=== PATIENT | female | born 1965 ===

== ENCOUNTER 2019-09-12 16:54 | Observation (INO) | payer BC, SELFPAY ==
--- NOTE | ~2019-09-12 | XR_ITS ---
EXAMINATION: XR chest 2V EXAM DATE: 09/12/2019 17:58 INDICATION: Chest pain, heaviness. TECHNIQUE: Frontal and lateral projections of the chest obtained and reviewed. There is no prior virgilio dy for comparison. FINDINGS: The lungs are clear. There are no pleural effusions. The cardiomediastinal silhouette is within normal limits. There is no pneumothorax suspected. The bones and soft tissues are unremarkab le. IMPRESSION: Normal chest x-ray exam. Reviewed, dictated and finalized at location A. OL FUNDRAISING DIRECTOR IMPRESSION: Normal chest x-ray exam.
--- NOTE | ~2019-09-12 | CT_ITS ---
EXAMINATION: CTA chest PE protocol EXAM DATE: 09/12/2019 18:46 INDICATION: Chest pain, dyspnea. TECHNIQUE: Spiral CTA of the chest (pulmonary arteries) was performed with 100 cc Omnipaque 350 intr avenous contrast injection. Images were acquired during the pulmonary arterial phase. Coronal maxi mum intensity projection 3D-reconstructions were created by the technologist on dedicated workstation . Axial, coronal and sagittal reformatted images were reviewed. The dose-length product (DLP) for t his examination was 592.53 mGy-cm. The exposure was tailored according to patient size (auto mA exp osure control), and iterative reconstruction (ASIR) was used as additional dose reduction technique. There is no prior study for comparison. FINDINGS: Pulmonary arteries are well opacified and without intraluminal filling defects. There is a n aberrant right subclavian artery, a normal congenital variant. No thoracic aortic dissection. The lungs are clear. There are no pleural or pericardial effusions. Tracheobronchial tree is patent. There is no mediastinal, hilar or axillary lymphadenopathy. There is no pneumothorax. Heart no rmal in size. There is mild coronary arterial calcification, arterial sclerosis. Cholecystectomy. There is a duodenal diverticulum measuring 2 x 4 cm. There are 2 right adrenal gland lesions measurin g about 1 cm, most likely adenomas. There is mild to moderate thoracic spondylosis without osteoblast ic or osteolytic lesions identified. IMPRESSION: 1. No pulmonary emboli or acute cardiopulmonary findings. Reviewed, dictated and finalized at location A. STRIAL EDITOR
--- NOTE | 2019-09-12 17:26 | ECG_ITS ---
Measurements Intervals [place] Rate: 59 P: 104 [place]: 137 QRS: -24 QRSD: 107 T: 46 QT: 408 QTc: 407 Interpretive Statements SINUS BRADYCARDIA NONSPECIFIC T-WAVE ABNORMALITY- INF/LAT LEADS BORDERLINE ECG Electronically Signed On 09-13-2019 6:42:59 WAREHOUSE OPERATIONS ASSOCIATE by Sid Han D.O.
[2019-09-12] MEDS: ASPIRIN 81 MG CHEWABLE TABLET 324 MG PO (17:32)
[2019-09-12 17:43] VITALS: BP 122/70; PULSE 72; RESP 18; TEMP 37.1; O2SAT 100
[2019-09-12 17:44] LABS: Basophils Percent Auto 0.3 % (0.2-1.2); Eosinophils Absolute Auto 0.1 K/mm3 (0-0.3); Eosinophils Percent Auto 0.6 % (0-4.4); Hematocrit 52.9 % (37.0-47.0); Hemoglobin 17.5 g/dL (12.0-15.0); Immature Granulocyte Absolute 0.03 K/mm3 (0.00-0.031); Immature Granulocyte Percent A 0.3 % (0-0.5); Lymphocytes Absolute Auto 2.02 K/mm3 (0.9-3.2); Lymphocytes Percent Auto 21.5 % (18.3-44.2); Mean Corpuscular HGB Conc 33.1 g/dl (32-36); Mean Corpuscular Hemoglobin 30.5 pg (26-34); Mean Corpuscular Volume 92.3 fl (80-100); Mean Platelet Volume 9.8 fl (7.4-10.4); Monocytes Absolute Auto 0.6 K/mm3 (0.1-0.6); Monocytes Percent Auto 6.2 % (2.6-8.5); Neutrophils Absolute Auto 6.7 K/mm3 (1.3-6.7); Neutrophils Percent Auto 71.1 % (45.5-73.1); Platelet Count Result 248 k/mm3 (150-375); Red Blood Count 5.73 M/mm3 (4.2-5.4); Red Cell Distribution Width 13.2 % (11.5-14.5); White Blood Count 9.4 K/mm3 (4.5-10.0)
--- NOTE | 2019-09-12 17:47 | ED.CHESTPAIN ---
HPI - Chest Pain General Chief Complaint: Chest Pain <Cris Asher MD - Last Filed: 09/12/19 18:26> Stated Complaint: CHEST HEAVINESS <Cris Asher MD - Last Filed: 09/12/19 18:26> Time Seen by Provider: 09/12/19 17:12 <Cris Asher MD - Last Filed: 09/12/19 18:26> Source: patient <Cris Asher MD - Last Filed: 09/12/19 18:26> Mode of arrival: EMS <Cris Asher MD - Last Filed: 09/12/19 18:26> Limitations: no limitations <Cris Asher MD - Last Filed: 09/12/19 18:26> History of Present Illness HPI narrative: Patient is a 54-year-old female who presents to the emergency department with complaint of chest heaviness and fatigue. Patient states she had onset of symptoms this morning after getting to work. She states the symptoms have progressively worsened throughout the day. She complains of feelings of fatigue and exhaustion. She states she has felt hot, flushed, and dizzy. She reports having difficulty taking a deep breath and feeling like something is sitting on her chest . She denies any fever, nausea, vomiting, or cough. She does report some diarrhea today. Patient was seen at urgent care 3 days ago for toothache and placed on antibiotics. Patient return to urgent care today and was sent to the emergency department for further evaluation of her symptoms. <Cris Asher MD - Last Filed: 09/12/19 18:26> MD complaint: chest heaviness <Cris Asher MD - Last Filed: 09/12/19 18:26> Onset (ago): hour(s) <Cris Asher MD - Last Filed: 09/12/19 18:26> Timing of current episode: constant, increasing and still present <Cris Asher MD - Last Filed: 09/12/19 18:26> Pain location: substernal <Cris Asher MD - Last Filed: 09/12/19 18:26> Pain radiation: none <Cris Asher MD - Last Filed: 09/12/19 18:26> Quality: heaviness <Cris Asher MD - Last Filed: 09/12/19 18:26> Associated symptoms: dyspnea <Cris Asher MD - Last Filed: 09/12/19 18:26> Related Data Home Medications: Home Medications Medication Instructions Recorded Confirmed penicillin V potassium 500 mg TID 09/12/19 09/12/19 <Cris Asher MD - Last Filed: 09/12/19 18:26> Allergies/Adverse Reactions: Allergies Allergy/AdvReac Type Severity Reaction Status Date / Time latex Allergy Mild Unknown Verified 09/12/19 18:26 <Cris Asher MD - Last Filed: 09/12/19 18:26> Review of Systems Constitutional: Constitutional: Reports fatigue and Denies fever(s) <Cris Asher MD - Last Filed: 09/12/19 18:26> ENT: Denies sore throat <Cris Asher MD - Last Filed: 09/12/19 18:26> Cardiovascular: Cardiovascular: Reports chest pain <Cris Asher MD - Last Filed: 09/12/19 18:26> Respiratory: Respiratory: Denies cough and Reports dyspnea <Cris Asher MD - Last Filed: 09/12/19 18:26> Gastrointestinal: Gastrointestinal: Denies abdominal pain, Reports diarrhea, Reports nausea and Denies vomiting <Cris Asher MD - Last Filed: 09/12/19 18:26> FOR[facility]LY [facility], [facility] Past Medical History Medical History: Medical History Family history of coronary artery disease Hypertension <Cris Asher MD - Last Filed: 09/12/19 18:26> Surgical History Surgical History: Surgical History History of appendectomy History of cholecystectomy <Cris Asher MD - Last Filed: 09/12/19 18:26> Family History Family History: Family History Father Diabetes mellitus Heart attack Sibling Diabetes mellitus Mother Cancer Sibling Cancer Heart attack <Cris Asher MD - Last Filed: 09/12/19 18:26> Social History Social History: Social
[2019-09-12 17:55] LABS: Alanine Aminotransferase 54 U/L (4-35); Albumin Level 4.9 g/dL (3.5-5.1); Alkaline Phosphatase 86 U/L (38-126); Aspartate Amino Transferase 42 U/L (14-36); Bilirubin,Total 0.6 mg/dL (0.2-1.3); Blood Urea Nitrogen 24 mg/dL (7-17); Calcium 9.9 mg/dL (8.4-10.2); Carbon Dioxide 22 mmol/L (22-30); Chloride 96 mmol/L (98-107); Estimated CRCL calculation 37 ml/min; Estimated Glomerular Filt Rate 33; Glucose 97 mg/dL (65-105); Potassium 4.2 mmol/L (3.4-5.0); Sodium 137 mmol/L (137-145)
[2019-09-12 17:56] LABS: Prothrombin Time 12.9 Seconds (11.1-14.7)
[2019-09-12 17:57] LABS: Partial Thromboplastin Time 28.1 SECONDS (22.3-36.8)
[2019-09-12 18:07] LABS: Troponin I < 0.012 ng/mL (0.000-0.034)
[2019-09-12 18:23] VITALS: BP 112/74; PULSE 61; RESP 14; O2SAT 99
[2019-09-12 19:02] LABS: Add Urine Microscopic? YES; Appearance Urine Cloudy (Clear); Bilirubin Urine Negative (Negative); Blood Urine Negative (Negative); Color Urine Yellow (Yellow); Glucose Urine UA Negative (Negative); Ketones Urine 1+ mg/dL (Negative); Leukocyte Esterase Ur Negative LEU/UL (Negative); Mucus Urine Rare /lpf; Nitrate Urine Negative (Negative); Protein Urine 1+ mg/dL (Negative); Specific Grav Ur 1.021 (1.001-1.035); Squamous Epithelial Cell Urine Occasional /hpf (Few); Urobilinogen Urine Negative mg/dL (<2.0)
[2019-09-12] MEDS: LACTATED RINGERS 1,000 ML 999 ML IV CONT ×2 (19:14→20:14)
[2019-09-12 20:12] VITALS: BP 110/66; PULSE 53; RESP 14; O2SAT 100
[2019-09-12 20:57] LABS: Troponin I < 0.012 ng/mL (0.000-0.034)
[2019-09-12 21:47] VITALS: BP 112/70; PULSE 58; RESP 16; O2SAT 98
[2019-09-12 22:00] VITALS: PULSE 60
[2019-09-12 22:10] VITALS: BMI 30.4
[2019-09-12 22:15] VITALS: BP 127/84; PULSE 66; RESP 18; TEMP 36.2; O2SAT 99; BMI 30.4
[2019-09-12] MEDS: LACTATED RINGERS 1,000 ML 125 ML IV CONT (22:50)
--- NOTE | 2019-09-12 23:46 | PM.IMHP ---
H&P: HPI History of Present Illness Chief complaint: chest pressure renal failure Narrative: This is a 54 year old female who presented to the hospital today secondary to feeling flushed, chest heaviness, and diarrhea today. The patient just started taking penicillin for a tooth abscess and today when she went to work she started to feel bad. She describes feeling flushed, hot, and clammy about 2 hours after taking her penicillin. She decided to go outside to get some fresh air and while she was outside in her car she began to have diarrhea. She ended up going to her mother's house to take a shower and then came back to work. She noticed that she was experiencing midsternal chest pressure that wasn't radiating anywhere. Her chest pressure was worse with exertion. She continued to have intermittent chest heaviness throughout the afternoon and decided to come to the hospital for evaluation. She has no previous history of heart disease and has never had a stress test before. The patient was found to have mild acute kidney injury in the ER tonight. Cardiology was consulted by the ER provider. On further questioning the patient denies any LE swelling, redness or pain. She denies any shortness of breath, headache, fevers, chills, coughing, sore throat, abdominal pain, dysuria, hematuria or rectal bleeding. On my encounter with her she is only complaining of tooth pain. Review of Systems Review of Systems: All systems reviewed & are unremarkable except as noted in HPI and below PMFSH Past Medical History Medical History Family history of coronary artery disease Hypertension Surgical History Surgical History History of appendectomy History of cholecystectomy Family History Family History Father Diabetes mellitus Heart attack Sibling Diabetes mellitus Mother Cancer Sibling Cancer Heart attack Social History Social History Smoking status: Never smoker Additional smoking assessment comments: occasional, social Alcohol intake: never Alcohol use details: occasional, social Substance use: never Gender identity (if verbalized by the patient): Male Spiritual care concerns: No Agree to blood products: Yes Meds Home Medications and Allergies Home Medications Medication Instructions Recorded Confirmed Type lisinopril 10 1 tablet PO DAILY #90 tablet 06/22/19 09/12/19 Rx mg-hydrochlorothiazide 12.5 mg tablet penicillin V potassium 500 mg TID 09/12/19 09/12/19 History Allergies Allergy/AdvReac Type Severity Reaction Status Date / Time latex Allergy Mild Unknown Verified 09/12/19 18:26 Vital Signs Vital Signs - 24 hr 09/12/19 17:43 09/12/19 18:23 09/12/19 20:12 Temperature 37.1 C Pulse Rate 72 61 53 L Respiratory Rate 18 14 14 Blood Pressure 122/70 112/74 110/66 Pulse Oximetry 100 99 100 09/12/19 21:47 09/12/19 22:15 Temperature 36.2 C L Pulse Rate 58 L 66 Respiratory Rate 16 18 Blood Pressure 112/70 127/84 Pulse Oximetry 98 99 Exam Const: General: cooperative, healthy appearing, no acute distress, alert and awake Nutritional Appearance: well nourished Orientation/consciousness: patient oriented x3 HENMT: Head: normal to inspection General nose exam: Normal external nose present Face and sinus: normal facial exam Mouth: Yes Normal oral and palatal mucosa present and Yes oropharynx normal Teeth and gingiva: other (broken right post. molar tooth w/ cavity+++ ) Eyes: Pupils: Equal, round and reactive pupils present EOM: EOMs intact bilaterally Neck: Neck: supple and no JVD Thyroid: thyroid normal Lymphatic: lymphadenopathy not noted Resp: Effort & Inspection: normal respiratory effort Auscultation: clear to auscultation bilaterally Cardio
[2019-09-13] VITALS (9 sets, daily range): BP systolic 98–122; BP diastolic 53–69; PULSE 47–98; RESP 20–21; TEMP 35.9–36.2; O2SAT 54–98
[2019-09-13 00:55] LABS: Troponin I < 0.012 ng/mL (0.000-0.034)
[2019-09-13] MEDS: AMOXICILLIN/CLAVULANATE K 500-125 MG TAB 1 TABLET PO ×2 (01:31→06:55)
[2019-09-13 05:55] LABS: Blood Urea Nitrogen 17 mg/dL (7-17); Carbon Dioxide 24 mmol/L (22-30); Chloride 100 mmol/L (98-107); Estimated CRCL calculation 71 ml/min; Estimated Glomerular Filt Rate > 60; Glucose 84 mg/dL (65-105); Potassium 3.8 mmol/L (3.4-5.0); Sodium 138 mmol/L (137-145)
[2019-09-13] MEDS: LACTATED RINGERS 1,000 ML 125 ML IV CONT (06:59)
--- NOTE | 2019-09-13 09:53 | PM.CNCAR ---
Assessment and Plan Assessment and plan (1) Chest pain: Code(s): R07.9 - Chest pain, unspecified Status: Acute Assessment and Plan: Atypical for angina. Chest pain has resolved and happened in the setting of possible reaction to abx EKG with no ischemic changes. trop is negative X3 Will hold off any further cardiac work up at this point She is stable for discharge from cardiac standpoint Given age, h/o HTN will plan stress echo for risk stratification. That to be arranged in outpatient settings after dental abscess resolved. (2) Acute renal failure: Code(s): N17.9 - Acute kidney failure, unspecified Status: Acute Assessment and Plan: Pre renal, better with IV fluids. (3) HTN (hypertension) with goal to be determined: Code(s): I10 - Essential (primary) hypertension Status: Acute Assessment and Plan: May resume JUSTINO now renal function better. History of Present Illness History of Present Illness Consult date/time: 09/13/19 09:53 54 year old female with h/o HTN who was sent to ER from urgent care concerning chest pressure She was evaluated there for tooth abscess and was started on penicillin. Few hours following first dose of abx she developed hot flushes, diarrhea and chest pressure. She had to leave work and went back to the urgent care and subsequently to the ER. EKG with sinus rhythm and no ST changes. Labs were notable from Cr 1.6, now down to 0.9 after had received fluids. Trop negative X3. She is chest pain free now. Denies dysppnea, dizziness, lightheadedness or syncope. No prior know cardiac disease. her only medication at home is Lisinopril Reason For Visit: chest pressure renal failure Review of Systems Review of Systems: All systems reviewed & are unremarkable except as noted in HPI and below Constitutional: Constitutional: Denies fatigue and Denies headache(s) Eyes: Eyes: Denies blurry vision ENT: Reports Normal hearing present and Denies headache(s) Cardiovascular: Cardiovascular: Denies chest pain, Denies diaphoresis, Denies pedal edema, Denies leg edema, Denies lightheadedness, Denies palpitations and Denies dyspnea Respiratory: Respiratory: Denies cough and Denies dyspnea Gastrointestinal: Gastrointestinal: Denies abdominal pain Musculoskeletal: Musculoskeletal: Denies back pain Neurologic: Reports Normal hearing present and Denies headache(s) Psychiatric: Psychiatric: Denies anxiety Endocrine: Endocrine: Denies fatigue and Denies palpitations PMF Past Medical History Medical History Family history of coronary artery disease Hypertension Surgical History Surgical History History of appendectomy History of cholecystectomy Family History Family History Father Diabetes mellitus Heart attack Sibling Diabetes mellitus Mother Cancer Sibling Cancer Heart attack Social History Social History Smoking status: Never smoker Additional smoking assessment comments: occasional, social Alcohol intake: never Alcohol use details: occasional, social Substance use: never Gender identity (if verbalized by the patient): Male Spiritual care concerns: No Agree to blood products: Yes Meds Home Medications and Allergies Home Medications Medication Instructions Recorded Confirmed Type lisinopril 10 1 tablet PO DAILY #90 tablet 06/22/19 09/12/19 Rx mg-hydrochlorothiazide 12.5 mg tablet penicillin V potassium 500 mg TID 09/12/19 09/12/19 History Allergies Allergy/AdvReac Type Severity Reaction Status Date / Time latex Allergy Mild Unknown Verified 09/12/19 18:26 Vital Signs Vital Signs - 24 hr 09/12/19 17:43 09/12/19 18:23 09/12/19 20:12 Temperature 37.1 C
--- NOTE | 2019-09-13 11:18 | PM.DS ---
DS: Diagnosis Admitting Diagnosis Admitting Diagnosis: Chest pain, unspecified Discharge Diagnosis (1) Chest pain: Code(s): R07.9 - Chest pain, unspecified Status: Acute Assessment and Plan: Admit for observation, telemetry, trend troponin, nitro prn for chest pain. Cardiology has been consulted by ER provider. (2) Diarrhea: Qualifiers: Diarrhea type: unspecified type Qualified Code(s): R19.7 - Diarrhea, unspecified Code(s): R19.7 - Diarrhea, unspecified Status: Acute Assessment and Plan: Likely secondary to penicillin. Continue IV fluids. (3) Acute renal failure: Code(s): N17.9 - Acute kidney failure, unspecified Status: Acute Assessment and Plan: Likely secondary to diarrhea. Continue IV fluid hydration. Monitor urine output. Check BMP in am. (4) Tooth infection: Code(s): K04.7 - Periapical abscess without sinus Status: Acute Assessment and Plan: The patient will need her penicillin changed to either amoxicillin or clindamycin before discharge. (5) HTN (hypertension) with goal to be determined: Code(s): I10 - Essential (primary) hypertension Status: Acute Assessment and Plan: Stable. Monitor blood pressure. Hold diuretic secondary to ARF. PRN IV antihypertensives as needed. DS: Summary Hospital Course Reason for hospitalization: This is a 54 year old female who presented to the hospital today secondary to feeling flushed, chest heaviness, and diarrhea today. The patient just started taking penicillin for a tooth abscess and today when she went to work she started to feel bad. She describes feeling flushed, hot, and clammy about 2 hours after taking her penicillin. She decided to go outside to get some fresh air and while she was outside in her car she began to have diarrhea. She ended up going to her mother's house to take a shower and then came back to work. She noticed that she was experiencing midsternal chest pressure that wasn't radiating anywhere. Her chest pressure was worse with exertion. She continued to have intermittent chest heaviness throughout the afternoon and decided to come to the hospital for evaluation. She has no previous history of heart disease and has never had a stress test before. The patient was found to have mild acute kidney injury in the ER tonight. Cardiology was consulted by the ER provider. On further questioning the patient denies any LE swelling, redness or pain. She denies any shortness of breath, headache, fevers, chills, coughing, sore throat, abdominal pain, dysuria, hematuria or rectal bleeding. On my encounter with her she is only complaining of tooth pain. Hospital Course: Patient is 54 y/o female with hx of HTN was recentley has developed tooth abscess and being teated with abx, presented to ER with c/o of chest pain which is now resolved, EKG did not show any acute changes and her tropes are normal, patient is seen by regenerator operator, clinically stable does not need any ischemic work up can be discharged home to follow up as an outpatient. will discharge patient home today. Status at Discharge Functional status at discharge: independent ambulation Overall status at discharge: patient is back to baseline Time Spent with Patient Time attestation: Total time spent providing and/or coordinating discharge services: Time spent: Greater than 30 minutes Exam Const: General: comfortable and no acute distress HENMT: General nose exam: Normal nares present Mouth: Yes dry mucous membranes Eyes: General: appearance normal, both eyes and all related structures Sclera: sclerae normal Neck: Neck: supple Resp: Effort & Inspection: normal respiratory effort Auscultation: clear to auscultation bilaterally Cardio: Rate: regular rate Rhythm: regular rhythm GI: GI Palp: Yes Soft to palpation Skin: General skin exam: normal color Neuro: Sensory Exam: normal sensation E
== END 2019-09-13 13:30 | disposition home or self-care (01) ==
LOC: ANHED 20:41 → ANHIMU 09-13 06:20
PROVIDERS: Emergency Medicine; Admitting Provider Family Medicine; Emergency Provider General Practice; PCP Family Medicine; Visit Provider Family Medicine
DX: R07.9 Chest pain, unspecified (principal); R19.7 Diarrhea, unspecified; N17.9 Acute kidney failure, unspecified; K04.7 Periapical abscess without sinus; I10 Essential (primary) hypertension; Z28.21 Immunization not carried out because of patient refusal; Z79.2 Long term (current) use of antibiotics; Z79.899 Other long term (current) drug therapy
CPT/HCPCS: 36415; 71046; 71275; 80048; 80053; 81001; 84484; 85025; 85380; 85610; 85730; 87804; 93005; 96360; 96361; 99285; A9270; G0378; J7120; Q9967

== ENCOUNTER 2023-01-12 18:51 | Emergency (ER) | payer BC, SELFPAY ==
--- NOTE | ~2023-01-12 | XR_ITS ---
XR foot LT min 3V DATE: 01/12/2023 19:03 INDICATION: Pain and swelling laterally across the toes TECHNIQUE: 4 views COMPARISON: None FINDINGS: Moderate posterior and more prominent plantar calcaneal enthesopathy. No fracture or dislocation, periosteal reaction or bone destruction is detected. There is some mild c hronic linear periosteal reaction along the fourth metatarsal shaft. IMPRESSION: No recent fracture or dislocation Calcaneal enthesopathy Reviewed, dictated and finalized at location A.
--- NOTE | 2023-01-12 19:03 | ED.LOWEXIN ---
HPI - Extremity Injury (Lower) General Chief Complaint: Extremity Injury, Lower Stated Complaint: Lt Foot Swelling Source: patient Mode of arrival: ambulatory Limitations: no limitations History of Present Illness HPI Narrative: 57-year-old female presented for complaint of left foot pain and swelling intermittently for over 1 month. States the ankle and entire foot hurt. She states she hears cracking when she gets up in the night to walk. Also reports swelling in the morning and progresses throughout the day. She states she stays on her feet all day while work. She denies numbness, tingling, weakness, decreased range of motion of the lower extremity. She has been taking Aleve for symptoms. Does not have a PCP and has not been taking her BP medications. Related Data Home Medications Medication Instructions Recorded Confirmed No Home Medications 01/12/23 01/12/23 Allergies Allergy/AdvReac Type Severity Reaction Status Date / Time latex AdvReac Mild Hives Verified 01/12/23 18:53 Penicillins AdvReac Mild Hives Verified 01/12/23 19:27 Review of Systems Review of Systems: CONSTITUTIONAL: Denies body aches, fever, chills EYES: Denies visual changes ENT: Denies rhinorrhea, congestion CARDIOVASCULAR: Denies chest pain, palpitations, or edema. RESPIRATORY: Denies cough or dyspnea. GASTROINTESTINAL: Denies abdominal pain, nausea, vomiting, or diarrhea. SKIN: Denies rash, itching, or wounds. MUSCULOSKELETAL: per HPI NEUROLOGIC: Denies headache, numbness, tingling, or weakness. All systems reviewed & are unremarkable except as noted in HPI and below PMFSH Past Medical History Medical History (Updated 01/12/23 @ 19:27 by Lou Camarillo APRN) Essential hypertension Family history of coronary artery disease Hypertension Surgical History Surgical History History of appendectomy History of cholecystectomy Family History Family History Father Diabetes mellitus Heart attack Sibling Diabetes mellitus Mother Cancer Sibling Cancer Heart attack Social History Social History Smoking status: Never smoker Additional smoking assessment comments: occasional, social Alcohol intake: never Alcohol use details: occasional, social Substance use: never Gender identity (if verbalized by the patient): Male Spiritual care concerns: No Agree to blood products: Yes Comments At time of signature, I have reviewed and agree with nursing past medical, surgical, social and family history unless otherwise noted. Please see nursing chart for further information. There is no relevant family history pertinent to the presenting complaint Exam Narrative: GENERAL: Well-appearing,in no acute distress. HEAD: Normocephalic, atraumatic. EYES: PERRLA, conjunctivae clear NECK: Supple. CHEST: Speaks in full sentences. No respiratory distress. HEART: Regular rate and rhythm. Normal and equal peripheral pulses. EXTREMITIES: Left lateral ankle with mild swelling. Tenderness with palpation to ankle, achilles, plantar aspect of heel, and midfoot. Left foot has normal strength and sensation, normal range of motion. No ecchymosis, No open wounds, or obvious deformity; alignment normal, pulse palpable and equal bilaterally, skin warm, dry, pink. Capillary refill less than 3 seconds. SKIN: Warm, dry, no rash. NEURO: Alert and oriented x3. PSYCH: Normal mood and affect Course Course Emergency Course: Patient is aware of diagnosis, understands and agrees to treatment plan. Anticipatory guidance given. Patient agrees to follow-up as directed and is aware of reasons to seek care at the emergency department. Portions of this record may have been created with voice recognition software Level of Care: Express Care Visit Vital Signs Vital s
[2023-01-12 19:09] VITALS: BP 171/84; PULSE 84; RESP 18; TEMP 36.1; O2SAT 97
== END 2023-01-12 19:37 | disposition home or self-care (01) ==
PROVIDERS: Emergency Provider Nurse Practitioner Family
DX: M79.672 Pain in left foot (principal); I10 Essential (primary) hypertension
CPT/HCPCS: 73630; 99213; G0463